=== PATIENT | female | born 1990 | race African-American/Black ===

== ENCOUNTER 2020-06-17 14:58 | Day surgery (SDC) ==
[2020-06-17] MEDS ORDERED: hydrALAZINE 20 MG/ML VIAL SLOW IVP PRN (15:03)
[2020-06-17 15:13] VITALS: BP 125/88; TEMP 98.3; BMI 32.4
[2020-06-17 15:47] LABS: #Lymphocytes 1.4 thou/uL (1.20-3.40); #Monocytes 0.6 thou/uL (0.11-0.59); #Neutrophils 8.3 thou/uL (1.40-6.50); %Basophils 0.4 % (0.0-1.0); %Eosinophils 0.3 % (0.0-10.0); %Lymphocytes 13.4 % (21.0-51.0); %Monocytes 5.8 % (0.0-10.0); %Neutrophils 80.1 % (42.0-75.0); Hemoglobin 10.3 g/dL (12.0-16.0); Mean Corpuscular HGB CONC 33.4 g/dL (32.0-36.0); Mean Corpuscular Hemoglobin 30.7 pg (27.0-31.0); Mean Corpuscular Volume 92.1 fL (78.0-98.0); Mean Platelet Volume 7.2 fL (7.4-10.4); Platelet Count 364 thou/uL (130-400); RBC Distribution Width 12.2 % (11.5-14.5); Red Blood Cell (RBC) Count 3.34 mill/uL (4.20-5.40); White Blood Cell (WBC) Count 10.3 thou/uL (4.8-10.8)
[2020-06-17 16:01] LABS: Amnisure Test No Membranes Rupture (No Rupture)
[2020-06-17 16:02] LABS: Amnisure Internal Control QC ACCEPTABLE (ACCEPTABLE)
[2020-06-17 16:11] LABS: ALT (SGPT) 12 U/L (8-55); AST (SGOT) 16 U/L (5-34); Albumin 3.2 g/dL (3.5-5.0); Alkaline Phosphatase 99 U/L (40-110); Anion Gap 15 mmol/L (10-20); BUN (Urea Nitrogen) 6 mg/dL (7.0-18.7); Bilirubin, Total 0.3 mg/dL (0.2-1.2); Calc. Creatinine Clearance 165 mL/min (70-130); Calcium 8.7 mg/dL (7.8-10.44); Carbon Dioxide 22 mmol/L (22-29); Chloride 105 mmol/L (98-107); Estimated GFR-MDRD Greater than 90; Globulin 3.3 g/dL (2.4-3.5); Glucose 117 mg/dL (70-105); Potassium 3.6 mmol/L (3.5-5.1); Protein, Total 6.5 g/dL (6.0-8.3); Sodium 138 mmol/L (136-145)
[2020-06-17 16:24] LABS: Bacteria/HPF None Seen HPF (None Seen); Bilirubin Negative (Negative); Blood, Urine Negative (Negative); Clarity Clear (Clear); Glucose, Urine (Dipstick) Normal (Negative); Ketone, Urine Negative (Negative); Leukocyte Negative Leu/uL (Negative); Mucous/LPF Rare LPF (<2+); Nitrite Negative (Negative); Protein, Urine (Dipstick) Negative (Neg-Trace); RBC/HPF 0-3 HPF (0-3); Specific Gravity, Urine 1.009 (1.002-1.036); Squamous Epithelial 0-3 HPF (0-3); Urobilinogen Normal mg/dL (Less than 2); WBC/HPF 0-3 HPF (0-3)
[2020-06-17 16:33] LABS: Amphetamine Not Detected (NotDetected); Barbiturates Screen Not Detected (NotDetected); Benzodiazepine Screen Not Detected (NotDetected); Cocaine Metabolite Screen Not Detected (NotDetected); Medtox Control Line Valid? VALID (VALID); Medtox Reader # READER 4; Methadone Not Detected (NotDetected); Methamphetamine Not Detected (NotDetected); Opiate Screen Not Detected (NotDetected); Oxycodone Screen Not Detected (NotDetected); Phencyclidine (PCP) Not Detected (NotDetected); THC/Cannabinoid Screen Not Detected (NotDetected); Tricyclic Screen Not Detected (NotDetected)
--- NOTE | 2020-06-17 19:14 | SS ---
DATE OF ADMISSION: 06/17/2020 DATE OF DISCHARGE: 06/17/2020 REGULAR PHYSICIAN: Out-of-town physician. CHIEF COMPLAINT: Dizziness and possible loss of fluid. HISTORY OF PRESENT ILLNESS: Ms. Roca is a 30-year-old black, G6, P3, with an estimated date of confinement of 08/02/2020, who presents complaining of feeling fatigued and dizzy over the last several hours. She states that she also had what might have been leakage of fluid, but thinks that it may have also been urine. She denies vaginal bleeding or decreased movement. Her care has been in [place], [place] and has been reportedly without complications. She was brought in by EMS today as she was visiting her family in the area. PAST OBSTETRICAL HISTORY: One vaginal delivery at term followed by two previous sections. She states the first section was for failure to progress and the second one was for distress. She also had one miscarriage at 14 weeks. PAST MEDICAL HISTORY: Includes anxiety, depression, PTSD per her report. PAST SURGICAL HISTORY: C-sections x2 as above. CURRENT MEDICATIONS: vitamins. ALLERGIES: INCLUDES MORPHINE, CODEINE, AND HYDROCODONE, ALL OF WHICH GIVE HER A RASH. SOCIAL HISTORY: Denies tobacco, alcohol, or drug use. FAMILY HISTORY: Unremarkable. REVIEW OF SYSTEMS: Denies nausea, vomiting, fever, or chills. Positive for dizziness and possible loss of fluid. PHYSICAL EXAMINATION: VITAL SIGNS: In Labor and Delivery, her vital signs are stable and she is afebrile. GENERAL: She appears sluggish, but does answer questions appropriately. ABDOMEN: Soft, nontender, and gravid. PELVIC: Shows no amniotic fluid seen. Digital vaginal exam shows the cervix to be closed and posterior per Dr. Zaira Calvillo. heart rate tracing is stable with spontaneous accelerations. No decelerations are seen. Only an occasional uterine contraction is noted. LABORATORY DATA: White count 10.3, hemoglobin and hematocrit 10.3 and 30.7, and platelet count 364,000. Chemistry; sodium 138, potassium 3.6, BUN 6, creatinine 0.64, glucose 117, total bilirubin 0.3, and AST and ALT are 16 and 12 respectively. Urinalysis shows a specific gravity of 1.009. There is negative protein, negative ketones, negative blood, negative nitrites, and negative leukocyte esterase. Microscopic is done and shows 0 to 3 rbc's, 0 to 3 wbc's, and 0 to 3 squamous cells with no bacteria seen. Urine toxicology is completely negative. AmniSure testing shows no evidence of membrane rupture. During her time here, she is hydrated and she states that she feels some better. ASSESSMENT: 1. 33-3/7-week intrauterine . 2. No evidence of ruptured membranes. PLAN: Patient will be dismissed to home. She was given precautions here and states that she has followup with her provider in the [facility] area. She is currently waiting on a ride home. Job ID: [id number]
== END 2020-06-17 17:04 | disposition home or self-care (01) ==
LOC: L&D/OP 14:58
PROVIDERS: ATTEND Obstetrics & Gynecology
DX: O99.891 Other specified diseases and conditions complicating pregnancy (principal); R42 Dizziness and giddiness; O34.219 Maternal care for unspecified type scar from previous cesarean delivery; O99.343 Other mental disorders complicating pregnancy, third trimester; F43.10 Post-traumatic stress disorder, unspecified; F41.9 Anxiety disorder, unspecified; F32.9 Major depressive disorder, single episode, unspecified; O09.293 Supervision of pregnancy with other poor reproductive or obstetric history, third trimester; Z3A.33 33 weeks gestation of pregnancy; Z88.5 Allergy status to narcotic agent
CPT/HCPCS: 36415; 80053; 80306; 81003; 84112; 85025